=== PATIENT | female | born 1960 | race Two or more races ===

== ENCOUNTER 2024-06-20 05:55 | Day surgery (SDC) | payer OTHER ==
[2024-06-14 13:15] VITALS: BP 114/76
[~2024-06-20] VITALS: Ht 157.5 cm; Wt 56.7 kg
[~2024-06-20 05:55] MED LIST: ACTEMRA162 MG/0.9
[2024-06-20] MEDS ORDERED: CEFTRIAXONE SODIUM 2,000 MG VIAL ONE (08:17)
[2024-06-20] MEDS ORDERED: METRONIDAZOLE/SODIUM CHLORIDE 500 MG/100 ML PIGGYBACK IV ONE (08:17)
[2024-06-20] MEDS ORDERED: BUPIVACAINE HCL/Mpf 0.5% 10ML VIAL ONE (08:53)
[2024-06-20] MEDS ORDERED: LIDOCAINE HCL 1%/EPINEPHRINE 20ML VIAL IJ ONE (08:53)
[2024-06-20] MEDS ORDERED: MORPHINE SULFATE 4 MG/ML VIAL IV ONE (12:25)
== END 2024-06-20 13:45 | disposition home or self-care (01) ==
LOC: CIR.AMB 05:55
PROVIDERS: ATTEND Colon & Rectal Surgery
DX: R15.9 Full incontinence of feces (principal); R32 Unspecified urinary incontinence
CPT/HCPCS: 64581; 95971; C1778

== ENCOUNTER 2024-07-04 05:16 | Day surgery (SDC) | payer OTHER ==
[2024-07-04] MEDS ORDERED: CEFTRIAXONE SODIUM 2,000 MG VIAL ONE (06:31)
[2024-07-04] MEDS ORDERED: METRONIDAZOLE/SODIUM CHLORIDE 500 MG/100 ML PIGGYBACK IV ONE (06:32)
[2024-07-04] MEDS ORDERED: LIDOCAINE HCL 1%/EPINEPHRINE 20ML VIAL IJ ONE (06:37)
[2024-07-04] MEDS ORDERED: BUPIVACAINE HCL/MPF 0.5% 30ML VIAL ONE (06:37)
== END 2024-07-04 10:30 | disposition home or self-care (01) ==
LOC: CIR.AMB 05:16
PROVIDERS: ATTEND Colon & Rectal Surgery
DX: R15.9 Full incontinence of feces (principal); R32 Unspecified urinary incontinence
CPT/HCPCS: 64590; 95971; C1767